=== PATIENT | female | born 1965 | race Caucasian/White ===

== ENCOUNTER 2017-05-16 16:55 | Emergency (ER) | payer OTHER ==
[~2017-05-16] VITALS: Ht 157.5 cm; Wt 64.5 kg
[~2017-05-16 16:55] MED LIST: AMLODIPINE BESYL5 MG PO; AMOXICILLIN875 MG PO; AUGMENTIN875 MG PO; BUTALB-APAP-CA1 EACH PO; COLACE100 MG PO; DAILY VITAMIN1 EAC8 PO; FLONASE16 G1 BOTH NARES; FLONASE16 GM NS; IBUPROFEN800 MG PO; KLONOPIN1 MG PO; LEXAPRO10 MG PO; LEXAPRO20 MG PO; LISINOPRIL20 MG PO; LISINOPRIL40 MG PO; LITHIUM CARBON150 MG PO; METHADONE 22 MG/1 ML PO; NICOTINE PATCH1 EAC2 TD; PERCOCET 5/31 TABLET PO; PRILOSEC40 MG PO; SENNA8.6 MG PO; SEROQUEL XR150 MG PO; SEROQUEL XR300 MG PO; SEROQUEL50 MG PO; SPIRIVA RESPIMAT4 GM IH; SPIRIVA1 INHALATI IH; TRAMADOL HCL50 MG PO; ULTRAM50 MG PO; VALIUM2 MG PO; VENTOLIN HFA18 GM IH; ZESTRIL,PRINIVI10 MG PO; ZESTRIL20 MG PO; ZESTRIL5 MG PO; ZYRTEC10 M2 PO; ZYRTEC10 M3 PO
[2017-05-16 19:26] LABS: ADD MIUA? YES; BILIRUBIN NEGATIVE; BLOOD NEGATIVE; COLOR STRAW ((YELLOW)); GLUCOSE (STRIP) NEGATIVE; KETONES NEGATIVE; LEUKOCYTES TRACE; NITRITE NEGATIVE; PROTEIN (STRIP) NEGATIVE; SPECIFIC GRAVITY 1.003 (1.000-1.030); UROBILINOGEN 0.2 MG/DL (0.2-1.0)
[2017-05-16 19:32] LABS: BACTERIA NONE SEEN /HPF; EPITHELIAL CELLS RARE /HPF; MUCUS NONE SEEN /LPF; RED BLOOD CELLS 0-5 /HPF (0-5); UCUL ADDED? NO; WHITE BLOOD CELLS 0-5 /HPF (0-5)
[2017-05-16 19:51] LABS: HEMATOCRIT 39.1 % (36.0-46.0); MCH 29.1 PG (29.0-34.0); MCV 88.3 FL (83-99); MEAN PLAT.VOLUME 10.5 uM^3 (9.5-12.4); PLATELET COUNT 282 K/uL (156-360); RBC DIS.WIDTH-CV 13.6 % (11.8-14.6); RBC DIS.WIDTH-SD 44.1 % (39-53); RED BLOOD COUNT 4.43 M/uL (3.80-5.20); WHITE BLOOD COUNT 10.7 K/uL (4.1-10.2)
[2017-05-16 20:15] LABS: CHLORIDE 103 mEq/L (99-109); POTASSIUM 3.9 mEq/L (3.7-5.4); SODIUM 138 mEq/L (136-147)
[2017-05-16 20:19] LABS: ANION GAP 11 MEQ/L (2-14)
[2017-05-16 20:20] LABS: TOTAL BILIRUBIN 0.2 mg/dL (0.0-1.0)
[2017-05-16 20:21] LABS: ALKALINE PHOSPHATASE 75 IU/L (3-129); GFR ESTIMATE (CALCULATED) > 59 mL/min/; GLUCOSE 106 mg/dL (70-99)
[2017-05-16 20:22] LABS: UREA NITROGEN (BUN) 10 mg/dL (9-23)
[2017-05-16 21:01] VITALS: BP 144/84
== END 2017-05-16 21:02 | disposition home or self-care (01) ==
LOC: EME 16:55
PROVIDERS: Nurse Practitioner Family
DX: D72.829 Elevated white blood cell count, unspecified (principal); K21.9 Gastro-esophageal reflux disease without esophagitis; F17.210 Nicotine dependence, cigarettes, uncomplicated
CPT/HCPCS: 80053; 81003; 85027; 99281; 99284

== ENCOUNTER 2017-08-16 16:49 | Emergency (ER) | payer OTHER ==
[~2017-08-16] VITALS: Ht 160 cm; Wt 64.7 kg
[2017-08-16] MEDS ORDERED: AUGMENTIN875 MG PO (17:03)
[2017-08-16 17:32] VITALS: BP 118/88
== END 2017-08-16 17:32 | disposition home or self-care (01) ==
LOC: EME 16:49
PROC: 3E0234Z Introduction of Serum, Toxoid and Vaccine into Muscle, Percutaneous Approach (ICD-10-PCS; principal; 2017-08-16)
DX: S61.258A Open bite of other finger without damage to nail, initial encounter (principal); F17.210 Nicotine dependence, cigarettes, uncomplicated; W53.01XA Bitten by mouse, initial encounter; Z23 Encounter for immunization; Z88.6 Allergy status to analgesic agent; Z88.5 Allergy status to narcotic agent; Z88.8 Allergy status to other drugs, medicaments and biological substances

== ENCOUNTER 2017-10-10 16:09 | Emergency (ER) | payer OTHER ==
[~2017-10-10] VITALS: Ht 157.5 cm; Wt 64.6 kg
[2017-10-10 19:36] VITALS: BP 130/71
== END 2017-10-10 19:37 | disposition home or self-care (01) ==
LOC: EME 16:09
DX: L72.3 Sebaceous cyst (principal); R51 Headache; H53.8 Other visual disturbances; I10 Essential (primary) hypertension; J44.9 Chronic obstructive pulmonary disease, unspecified; F17.200 Nicotine dependence, unspecified, uncomplicated
CPT/HCPCS: 99281; 99283